=== PATIENT | female | born 1970 | race Caucasian/White ===

== ENCOUNTER 2017-07-15 07:23 | Day surgery (SDC) | payer OTHER ==
[2017-07-15] MEDS ORDERED: CEFAZOLIN 1 GM/50 ML (PMX) 50 ML IVPB ×2 (08:30→09:49)
[2017-07-15] MEDS ORDERED: SOD CHLORIDE 0.9% 1,000 ML IV (08:30)
[2017-07-15] MEDS ORDERED: POLYMYXIN/BACITRACIN 1L IRRIG IRR (08:30)
[2017-07-15] MEDS ORDERED: FENTAnyl 50 MCG/ML VIAL (09:49)
[2017-07-15] MEDS ORDERED: LIDOCAINE 1%/EPI 30 ML INJ (09:49)
[2017-07-15] MEDS ORDERED: MIDAZOLAM 1 MG/ML 2 ML INJ (09:49)
[2017-07-15] MEDS ORDERED: HEPARIN 1000 UNITS/ML 10 ML INJ (09:49)
[2017-07-15] MEDS ORDERED: SOD CHLORIDE 0.9% 500 ML (09:49)
[2017-07-15] MEDS ORDERED: HYDROCODONE/APAP (5/325) TAB PO (11:30)
== END 2017-07-15 17:32 | disposition home or self-care (01) ==
LOC: SDS 07:23
DX: C50.911 Malignant neoplasm of unspecified site of right female breast (principal)
CPT/HCPCS: 36561; 76942; 93306

== ENCOUNTER 2018-01-20 08:06 | Observation (INO) | payer OTHER ==
[~2018-01-20 08:06] MED LIST: CEFAZOLIN 1 GM INJ; SUCCINYLCHOLINE CHLORIDE 100 MG/5 ML SYG IV
[2018-01-20 10:53] LABS: ADD MAN DIFF? NO
[2018-01-20] MEDS: SOD CHLORIDE 0.9% 1,000 ML IV (10:59)
[2018-01-20 11:00] LABS: BASOPHILS % 0.3 % (0.0-2.0); EOSINOPHILS % 1.1 % (0.0-7.0); HEMATOCRIT 31.4 % (37.0-47.0); HEMOGLOBIN 9.8 g/dl (12.0-16.0); LYMPHOCYTES # 1.5 10^3/ul (0.8-2.9); LYMPHOCYTES % 40.4 % (15.0-51.0); MEAN CORPUSCULAR HEMOGLOBIN 28.4 pg (29.0-33.0); MEAN CORPUSCULAR HGB CONC 31.2 g/dl (32.0-37.0); MEAN PLATELET VOLUME 11.5 fl (7.4-10.4); MONOCYTE # 0.2 10^3/ul (0.3-0.9); MONOCYTES % 6.3 % (0.0-11.0); NEUTROPHILS % 51.9 % (39.0-77.0); PLATELET COUNT 115 10^3/UL (140-415); RED BLOOD COUNT 3.45 10^6/ul (4.20-5.40); RED CELL DISTRIBUTION WIDTH 16.2 % (11.5-14.5)
[2018-01-20 11:00] LABS: WHITE BLOOD COUNT 3.8 10^3/ul (4.8-10.8)
[2018-01-20] MEDS: CEFAZOLIN 1 GM/50 ML (PMX) 50 ML IVPB (11:00)
[2018-01-20 11:04] LABS: HOLD TRANSMISSIONS 1
[2018-01-20 11:21] LABS: ALANINE AMINOTRANSFERASE 30 IU/L (13-69); ALBUMIN/GLOBULIN RATIO 1.14; ALKALINE PHOSPHATASE 73 IU/L (42-121); ANION GAP 12 (8-16); ASPARTATE AMINO TRANSFERASE 37 IU/L (15-46); BILIRUBIN,INDIRECT 0.5 mg/dl (0-1.1); BILIRUBIN,TOTAL 0.5 mg/dl (0.2-1.3); BLOOD UREA NITROGEN 18 mg/dl (7-20); CALCIUM 9.4 mg/dl (8.4-10.2); CARBON DIOXIDE 27 mmol/L (21-31); CHLORIDE 108 mmol/L (97-110); CREATININE 0.65 mg/dl (0.44-1.00); GLUCOSE 98 mg/dl (70-220); POTASSIUM 4.5 mmol/L (3.5-5.1); SODIUM 142 mmol/L (135-144); TOTAL PROTEIN 7.5 g/dl (6.1-8.1)
[2018-01-20 11:38] LABS: PT RATIO 1.1
[2018-01-20 12:08] LABS: INR 1.02; PROTIME 13.5 Sec (11.9-14.9)
[2018-01-20] MEDS ORDERED: NALOXONE (0.4 MG/ML) INJ IV ×2 (14:00→16:30)
[2018-01-20] MEDS ORDERED: MIDAZOLAM 1 MG/ML 2 ML INJ (14:01)
[2018-01-20] MEDS ORDERED: NEOSTIGMINE 3 MG/3 ML SYRINGE (14:01)
[2018-01-20] MEDS ORDERED: GLYCOPYRROLATE 0.4 MG INJ (14:01)
[2018-01-20] MEDS ORDERED: LIDOCAINE 2% (SDV) 5 ML INJ (14:01)
[2018-01-20] MEDS ORDERED: ROCURONIUM 50 MG INJ (14:01)
[2018-01-20] MEDS ORDERED: PROPOFOL 20 ML (14:01)
[2018-01-20] MEDS ORDERED: FENTAnyl 50 MCG/ML VIAL (14:02)
[2018-01-20] MEDS ORDERED: DEXAMETHASONE 4 MG/ML 1 ML INJ (14:03)
[2018-01-20] MEDS ORDERED: ONDANSETRON 4 MG INJ (14:03)
[2018-01-20] MEDS ORDERED: ONDANSETRON 4 MG INJ IV ×2 (16:00→21:30)
[2018-01-20] MEDS ORDERED: ACETAMINOPHEN 1000MG/100ML IV 100 ML IVPB (16:00)
[2018-01-20] MEDS: morphine 2 MG INJ IV (16:58)
[2018-01-20] MEDS: D5W-0.45 NACL + KCL 20 MEQ 1,000 ML IV (17:05)
[2018-01-20] MEDS ORDERED: morphine 2 MG INJ IV (21:30)
[2018-01-20] MEDS ORDERED: HYDROCODONE/APAP (5/325) TAB PO (21:30)
[2018-01-21 05:50] LABS: ADD MAN DIFF? NO
[2018-01-21 06:07] LABS: BASOPHILS % 0.2 % (0.0-2.0); HEMATOCRIT 29.7 % (37.0-47.0); HEMOGLOBIN 9.4 g/dl (12.0-16.0); LYMPHOCYTES # 0.9 10^3/ul (0.8-2.9); LYMPHOCYTES % 13.8 % (15.0-51.0); MEAN CORPUSCULAR HEMOGLOBIN 28.9 pg (29.0-33.0); MEAN CORPUSCULAR HGB CONC 31.6 g/dl (32.0-37.0); MEAN CORPUSCULAR VOLUME 91.4 fl (82.0-101.0); MONOCYTE # 0.3 10^3/ul (0.3-0.9); MONOCYTES % 4.5 % (0.0-11.0); NEUTROPHIL # 5.3 10^3/ul (1.6-7.5); NEUTROPHILS % 81.3 % (39.0-77.0); PLATELET COUNT 119 10^3/UL (140-415); RED BLOOD COUNT 3.25 10^6/ul (4.20-5.40); RED CELL DISTRIBUTION WIDTH 16.1 % (11.5-14.5)
[2018-01-21 06:07] LABS: WHITE BLOOD COUNT 6.5 10^3/ul (4.8-10.8)
[2018-01-21 06:35] LABS: ANION GAP 11 (8-16); BLOOD UREA NITROGEN 14 mg/dl (7-20); CALCIUM 9.1 mg/dl (8.4-10.2); CARBON DIOXIDE 23 mmol/L (21-31); CHLORIDE 110 mmol/L (97-110); CREATININE 0.61 mg/dl (0.44-1.00); GLUCOSE 137 mg/dl (70-220); POTASSIUM 4.4 mmol/L (3.5-5.1); SODIUM 140 mmol/L (135-144)
== END 2018-01-21 13:46 | disposition home or self-care (01) ==
LOC: SDS 08:06 → REC 16:47 → MS1 17:49
DX: C50.811 Malignant neoplasm of overlapping sites of right female breast (principal); C77.3 Secondary and unspecified malignant neoplasm of axilla and upper limb lymph nodes; E07.9 Disorder of thyroid, unspecified; I83.90 Asymptomatic varicose veins of unspecified lower extremity
CPT/HCPCS: 19302; 80048; 80053; 84703; 85025; 85610; 85730; 88307; 99217